=== PATIENT | female | born 1950 | race Caucasian/White ===

== ENCOUNTER → 2017-03-15 | Outpatient (CLI) | payer MEDICARE, OTHER ==
--- NOTE | 2017-03-16 09:25 | REP ---
MRI right knee without contrast: History: Internal derangement right knee. Pain in the right knee for several days after a injury. No comparison radiographs are available. Technique: Sagittal, axial and coronal imaging planes are utilized. T1, proton density and T2-weighted scans were obtained with and without fat saturation in the usual fashion. Findings: There is a [id number] joint effusion distending the suprapatellar bursa of the right knee joint. There is a Hartmann's cyst in the posteromedial popliteal soft tissues, which measures 5.5 cm in craniocaudal length. There is soft tissue swelling in the extra-articular soft tissues principally posteriorly and medially. There is a focal somewhat linear area of low T1, high T2 signal in the subcortical marrow of the lateral tibial plateau without evidence of cortical discontinuity or depression. There is some overlying increased signal intensity in the articular cartilage. This may be a osteocartilaginous contusion or more likely, chondromalacia with secondary subcortical marrow edema. There is also partial thickness chondromalacia, moderate in degree in the medial femoral condyle and medial tibial plateau. There is a small subcortical cyst in the posterior aspect of the medial femoral condyle adjacent to the inner condylar notch. Cortical and medullary bone signal intensity are otherwise normal. Medial and lateral patellar retinacular structures are intact. The anterior and posterior cruciate ligaments have an intact appearance. Patellar and quadriceps tendons are intact. There is some prepatellar tendon soft tissue edema which may reflect prepatellar tinnitus. A normal fabella is seen. No lateral meniscal tear is seen. There is increased signal intensity in the posterior body and posterior horn of the medial meniscus extending to the superior articular margin, consistent with a posterior medial meniscal tear. This extends to the mid body level. The medial collateral ligament appears intact and there is no evidence of lateral collateral ligament disruption. Impression: 1. [id number] joint effusion. 2. 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 3. Subcortical marrow edema pattern in the lateral tibial plateau, question contusion. 4. Degenerative tear medial meniscus. 5. Hartmann's cyst with some adjacent extra-articular soft tissue edema. Signed by Nithin Horvath MD 03/16/2017 11:19 A
== END ==
LOC: M RAD 17:18
PROVIDERS: ATTEND Surgery
DX: M25.461 Effusion, right knee (principal); M71.21 Synovial cyst of popliteal space [Baker], right knee; M94.261 Chondromalacia, right knee; S83.241A Other tear of medial meniscus, current injury, right knee, initial encounter; X58.XXXA Exposure to other specified factors, initial encounter; Y92.9 Unspecified place or not applicable; Y93.9 Activity, unspecified; Y99.9 Unspecified external cause status

== ENCOUNTER → 2023-02-13 | Outpatient (CLI) | payer MEDICARE, OTHER ==
[2023-02-13 12:31] LABS: HEMATOCRIT 41.3 % (36.0-47.0); HEMOGLOBIN 13.3 g/dl (12.0-15.5); MEAN CORPUSCULAR HEMOGLOBIN 29.5 pg (27.0-33.0); MEAN CORPUSCULAR HGB CONC 32.2 g/dl (32.0-36.5); MEAN CORPUSCULAR VOLUME 91.6 fl (80.0-96.0); PLATELET COUNT, AUTOMATED 277 10^3/uL (150-450); RED BLOOD COUNT 4.51 10^6/uL (4.00-5.40); WHITE BLOOD COUNT 10.7 10^3/uL (4.0-10.0)
[2023-02-13 12:56] LABS: FREE T4 1.16 NG/DL (0.89-1.76)
[2023-02-13 12:58] LABS: ALBUMIN 3.6 G/DL (3.2-5.2); BILIRUBIN,TOTAL 0.3 MG/DL (0.3-1.2); CALCIUM LEVEL 9.2 MG/DL (8.3-10.6); CHOLESTEROL RISK RATIO 2.33 (<5); CREATININE FOR GFR 1.16 MG/DL (0.55-1.30); GLOMERULAR FILTRATION RATE 48.8 (>39); HDL CHOLESTEROL 73.1 MG/DL (>40); LDL CHOLESTEROL 83.9 MG/DL (<100); NON-HDL-C 97.9 MG/DL; POTASSIUM SERUM 4.7 MMOL/L (3.5-5.1); PTH INTACT 79.1 PG/ML (18.5-88.0); THYROID STIMULATING HORMONE 1.265 uIU/ML (0.55-4.78); TOTAL PROTEIN 6.8 G/DL (5.7-8.2)
== END ==
LOC: M LAB 11:31
DX: E55.9 Vitamin D deficiency, unspecified (principal); N18.31 Chronic kidney disease, stage 3a; E21.3 Hyperparathyroidism, unspecified; E72.11 Homocystinuria

== ENCOUNTER → 2023-06-19 | Outpatient (CLI) | payer MEDICARE, OTHER ==
[2023-06-19 13:51] LABS: HEMOGLOBIN 12.6 g/dl (12.0-15.5); MEAN CORPUSCULAR HEMOGLOBIN 30.5 pg (27.0-33.0); MEAN CORPUSCULAR HGB CONC 34.1 g/dl (32.0-36.5); MEAN CORPUSCULAR VOLUME 89.6 fl (80.0-96.0); PLATELET COUNT, AUTOMATED 264 10^3/uL (150-450); RED BLOOD COUNT 4.13 10^6/uL (4.00-5.40); WHITE BLOOD COUNT 8.6 10^3/uL (4.0-10.0)
[2023-06-19 14:13] LABS: CREATININE, URINE 125.9 MG/DL
[2023-06-19 14:15] LABS: ALBUMIN 3.7 G/DL (3.2-5.2); BILIRUBIN,TOTAL 0.3 MG/DL (0.3-1.2); CALCIUM LEVEL 9.2 MG/DL (8.3-10.6); CHOLESTEROL RISK RATIO 2.59 (<5); CREATININE FOR GFR 1.01 MG/DL (0.55-1.30); GLOMERULAR FILTRATION RATE 57.2 (>39); HDL CHOLESTEROL 76.8 MG/DL (>40); LDL CHOLESTEROL 94.4 MG/DL (<100); NON-HDL-C 122.2 MG/DL; POTASSIUM SERUM 4.4 MMOL/L (3.5-5.1); PTH INTACT 76.2 PG/ML (18.5-88.0); THYROID STIMULATING HORMONE 2.115 uIU/ML (0.55-4.78); TOTAL PROTEIN 6.7 G/DL (5.7-8.2)
[2023-06-19 14:15] LABS: MAU/CREAT RATIO 2.3 MCG/MG (0.0-30.0)
== END ==
LOC: M LAB 13:10
PROVIDERS: ATTEND Internal Medicine
DX: N18.31 Chronic kidney disease, stage 3a (principal); I12.9 Hypertensive chronic kidney disease with stage 1 through stage 4 chronic kidney disease, or unspecified chronic kidney disease; D64.9 Anemia, unspecified; E78.5 Hyperlipidemia, unspecified; E03.9 Hypothyroidism, unspecified; E72.11 Homocystinuria; E21.3 Hyperparathyroidism, unspecified